=== PATIENT | female | born 1955 | race Caucasian/White ===

== ENCOUNTER 2016-09-14 10:30 | Emergency (ER) | payer OTHER ==
[~2016-09-14] VITALS: Ht 157.5 cm; Wt 78.0 kg
[~2016-09-14 10:30] MED LIST: NAPR-260 PO
[2016-09-14 10:40] VITALS: Ht 157.5 cm; Wt 78.0 kg
[2016-09-14 12:57] LABS: ADD SCAN DIFF NO
[2016-09-14 12:59] LABS: BASOPHILS % 0.3 % (0.0-2.0); EOSINOPHILS # 0.1 10^3/ul (0.0-0.5); EOSINOPHILS % 1.1 % (0.0-7.0); HEMATOCRIT 37.5 % (37.0-47.0); HEMOGLOBIN 12.4 g/dl (12.0-16.0); LYMPHOCYTES # 1.6 10^3/ul (0.8-2.9); LYMPHOCYTES % 23.4 % (15.0-51.0); MEAN CORPUSCULAR HGB CONC 33.1 g/dl (32.0-37.0); MEAN CORPUSCULAR VOLUME 81.5 fl (82.0-101.0); MEAN PLATELET VOLUME 8.8 fl (7.4-10.4); MONOCYTE # 0.6 10^3/ul (0.3-0.9); MONOCYTES % 8.3 % (0.0-11.0); NEUTROPHIL # 4.5 10^3/ul (1.6-7.5); NEUTROPHILS % 66.7 % (39.0-77.0); PLATELET COUNT 316 10^3/UL (140-415); RED CELL DISTRIBUTION WIDTH 12.7 % (11.5-14.5); WHITE BLOOD COUNT 6.7 10^3/ul (4.8-10.8)
[2016-09-14 13:18] LABS: ALBUMIN 4.4 g/dl (3.3-4.9); ALBUMIN/GLOBULIN RATIO 1.12; BILIRUBIN,INDIRECT 0.2 mg/dl (0-1.1); BILIRUBIN,TOTAL 0.2 mg/dl (0.2-1.3); CREATININE 0.49 mg/dl (0.44-1.00); POTASSIUM 4.4 mmol/L (3.5-5.1); TOTAL PROTEIN 8.3 g/dl (6.1-8.1)
[2016-09-14 13:46] LABS: C-REACTIVE PROTEIN 2.6 mg/dl (0.0-0.9)
[2016-09-14 14:42] VITALS: BP 136/55; PULSE 81; RESP 16
--- NOTE | 2016-09-14 14:58 | ERD ---
ER Documentation Chief Complaint Date/Time DATE: 09/14/16 TIME: 14:53 Chief Complaint JOINTS PAIN, WANTS LAB WORK UP HPI This is a 58-year-old female accompanied by her presenting to the ER complaining of swelling to her feet, ankles and hands for the past month. States pain is minimal, denies fever or trauma. patient is from [place] and that is where her primary care physician is. Patient states that she has been evaluated at [facility] in which they have done x-rays and blood work however they have told her that it was all normal. Patient was then evaluated at this facility in this past week as well. Patient refused blood work at that time however she has discussed with 1 of her friends as a physician to get the blood work, ESR, and CRP. Patient has been trying naproxen without much relief. ROS All systems reviewed and are negative except as per history of present illness. Medications Home Meds Active Scripts Naproxen* (Naprosyn*) 500 Mg Tablet, 500 MG PO BID Y for PAIN AND/OR INFLAMMATION, #30 TAB Prov:SAGRARIO EDGE PA-C 09/09/16 PMhx/Soc History of Surgery: No Anesthesia Reaction: No Hx Neurological Disorder: No Hx Respiratory Disorders: No Hx Cardiac Disorders: Yes (HTN) Hx Psychiatric Problems: No Hx Miscellaneous Medical Probl: Yes (DM) Hx Alcohol Use: No Hx Substance Use: No Hx Tobacco Use: No Smoking Status: Never smoker Physical Exam Vitals Vital Signs Date Time Temp Pulse Resp B/P Pulse Ox O2 Delivery O2 Flow Rate FiO2 09/14/16 14:42 81 16 136/55 99 09/14/16 10:40 98.1 70 18 140/63 99 Physical Exam Const: Well-developed well-nourished no acute distress Head: Atraumatic Eyes: Normal Conjunctiva ENT: Normal External Ears, Nose and Mouth. Neck: Full range of motion..~ No meningismus. Resp: Clear to auscultation bilaterally Cardio: Regular rate and rhythm, no murmurs Abd: Soft, non tender, non distended. Normal bowel sounds Skin: No petechiae or rashes Back: No midline or flank tenderness Ext: No pitting edema, bilateral ankle swelling, mild swelling in the PIP and DIP of the hands bilateral Neur: Awake and alert Psych: Normal Mood and Affect Result Diagram: 09/14/16 1240 09/14/16 1240 Results 24 hrs Laboratory Tests Test 09/14/16 12:40 White Blood Count 6.710^3/ul Red Blood Count 4.6010^6/ul Hemoglobin 12.4g/dl Hematocrit 37.5% Mean Corpuscular Volume 81.5fl Mean Corpuscular Hemoglobin 27.0pg Mean Corpuscular Hemoglobin Concent 33.1g/dl Red Cell Distribution Width 12.7% Platelet Count 06265^3/UL Mean Platelet Volume 8.8fl Neutrophils % 66.7% Lymphocytes % 23.4% Monocytes % 8.3% Eosinophils % 1.1% Basophils % 0.3% Nucleated Red Blood Cells % 0.0/100WBC Neutrophils # 4.510^3/ul Lymphocytes # 1.610^3/ul Monocytes # 0.610^3/ul Eosinophils # 0.110^3/ul Basophils # 0.010^3/ul Nucleated Red Blood Cells # 0.010^3/ul Erythrocyte Sedimentation Rate 91mm/Hr Sodium Level 145mmol/L Potassium Level 4.4mmol/L Chloride Level 107mmol/L Carbon Dioxide Level 27mmol/L Anion Gap 15 Blood Urea Nitrogen 10mg/dl Creatinine 0.49mg/dl Glucose Level 116mg/dl Uric Acid 3.9mg/dl Calcium Level 10.0mg/dl Total Bilirubin 0.2mg/dl Direct Bilirubin 0.00mg/dl Indirect Bilirubin 0.2mg/dl Aspartate Amino Transf (AST/SGOT) 28IU/L Alanine Aminotransferase (ALT/SGPT) 29IU/L Alkaline Phosphatase 114IU/L C-Reactive Protein 2.6mg/dl B-Type Natriuretic Peptide 196PG/ML Total Protein 8.3g/dl Albumin 4.4g/dl Globulin 3.90g/dl Albumin/Globulin Ratio 1.12 Procedures/MDM This is a 58-year-old female accompanied by her presenting to the ER complaining of swelling to her feet, ankles and hands for the past month. Patient is from [place] and that is where her primary care physician is. Patient states that she has been evaluated at [facility] in which they have done x-rays and blood work however they have told her that it was all normal. Patient was then evaluated at this facility in this past week as well. Patient refused blood work at that time however she has discussed with 1 of her friends as a physician to get the blood work, ESR, and CRP. At this time I do not believe patient has any septic arthritis. She appears well this may be an autoimmune condition. It is best that patient follows up with her regular doctor to get a referral to see a electric razor mechanic. In the ED blood work has been drawn and patient did have mild elevation in ESR and CRP. I have given diagnostic testing to the patient and discussed to follow-up with a regular doctor. They understand and agree with the plan. Patient is neurovascular intact and hematocele for discharge for home. Departure Diagnosis: Primary Impression: Polyarthritis Condition: Stable Patient Instructions: What Is Rheumatoid Arthritis?, Arthralgia Referrals: DOCTOR,NOT ON STAFF (PCP) Additional Instructions: FOLLOW UP WITH YOUR PRIMARY CARE PHYSICIAN TOMORROW.Return to this facility if you are not improving as expected. ANGEL LANDIN PA-C Sep 14, 2016 14:58
== END 2016-09-14 14:43 | disposition home or self-care (01) ==
LOC: FTE 10:30
DX: M13.0 Polyarthritis, unspecified (principal); I10 Essential (primary) hypertension; E11.9 Type 2 diabetes mellitus without complications
CPT/HCPCS: 36415; 80053; 83880; 84560; 85025; 85651; 86140; 99283